=== PATIENT | male | born 2000 | race Caucasian/White ===

== ENCOUNTER 2018-11-17 00:16 | Emergency (ER) | payer BC, SELFPAY ==
[2018-11-17 00:17] VITALS: BP 122/82; PULSE 89; RESP 18; TEMP 37.4; O2SAT 95; BMI 24.3
--- NOTE | 2018-11-17 01:00 | RAD_ITS ---
STUDY: X-RAY CHEST REASON FOR EXAM: Male, 18 years old. Cough. Sore throat. Headache. Congestion. Fever. Diarrhea. TECHNIQUE: Frontal and lateral views of the chest. COMPARISON: None. FINDINGS: The lungs are clear and expanded. There is no demonstrated pleural abnormality. Normal size heart. Normal mediastinum and twyla. Normal visualized pulmonary arteries. Normal visualized aortic arch and descending thoracic aorta. Normal visualized thoracic spine. Normal visualized ribs, clavicles, and shoulders. There is no demonstrated abnormality of the visualized soft tissue structures of the upper abdomen. RAD/Chest PA and Lateral IMPRESSION: Normal x-ray examination of the chest. Electronically Signed: Savage Garay MD at 2:15 EST , Service support ,
[2018-11-17] MEDS: Ketorolac 30 MG/ML Syringe IV (01:18)
[2018-11-17] MEDS: Ondansetron 4 MG/2 ML Vial IV (01:18)
[2018-11-17] MEDS: 0.9% Normal Saline 1,000 ML 999 ML IV (01:18)
--- NOTE | 2018-11-17 02:47 | ED.RN ---
lab called with positive lab results. Patient positive flu A. Dr. Tapia made aware no new orders at this time
--- NOTE | 2018-11-17 03:04 | ED.DEP ---
ED Disposition - Plan for ED Patient: Instructions: ED Flu Referrals: Care Physician,No Primary [Primary Care Provider] -
[2018-11-17 03:14] VITALS: BP 126/64; PULSE 60; RESP 15; O2SAT 98
--- NOTE | 2018-11-17 03:28 | ED.RN ---
Update report given to [facility].
--- NOTE | 2018-11-17 06:57 | ED.DCSUM_ITS ---
- ER Visit Summary Date of Service: 11/17/18 Chief Complaint: Fever History of Present Illness: The patient is a 18 M who presents with a fever. He has been ill for about a day. He complains of congestion rhinorrhea sore throat shortness of breath cough nausea diarrhea muscle aches and joint aches. Physical Examination: 1.3. Vitals otherwise unremarkable Moist mucous membranes Heart regular rate and rhythm Lungs are clear Abdomen soft Alert Test Results: Rapid influenza is positive for influenza A. Two-view chest x-ray normal. Emergency Department Course and Treatment: She is symptomatically treated here with IV fluids and Toradol. He has had some improvement on reevaluation. He was advised on supportive care and specific signs and symptoms to monitor for he was discharged. Treatment Plan: [] Disposition: Discharge Impression: Influenza A This note was generated with [employer] dictation software. It may contain incorrect words, spelling, and punctuation that were not noted in review of the chart prior to signing ED Disposition - Plan for ED Patient: Disposition: Home or Assisted Living Instructions: ED Flu Referrals: Care Physician,No Primary [Primary Care Provider] -
== END 2018-11-17 03:15 | disposition home or self-care (01) ==
PROVIDERS: Emergency Provider Emergency Medicine
DX: J11.1 Influenza due to unidentified influenza virus with other respiratory manifestations (principal)
CPT/HCPCS: 71046; 87804; 96361; 96374; 96375; 99284; J7030; A4216; J2405

== ENCOUNTER 2019-10-25 16:33 | Emergency (ER) | payer BC, SELFPAY ==
[2019-10-25 16:34] VITALS: BP 140/73; PULSE 65; RESP 16; TEMP 36.2; O2SAT 99; BMI 24.3
--- NOTE | 2019-10-25 17:00 | ED.VISSUMM ---
- ER Visit Summary Date of Service: 10/25/19 Chief Complaint: [Head injury/concussion] History of Present Illness: The patient is a 19 M [presents to the emergency department with a head injury that occurred 5 days ago. Patient states that he was wrestling with a friend and was kind of dropped on his head from about 2 feet off the ground. Patient sustained a rug burn to the forehead. Since that time has had a hard time concentrating and complains of a mild low-grade headache that he rates about a 4 out of 10. Patient also has had some intermittent dizziness with standing and quick head movements. Patient states that he has had concussions before is not real worried about it but has some sort of a certification test coming up and was trying to have it moved and would need a note from a doctor. Patient drove himself to the emergency department. Patient has otherwise no medical history. He denies any neck pain. He has had no vomiting. Patient denies any visual changes.] Physical Examination: [HEENT-PERRLA, EOMI. Cranial nerves II through XII grossly intact. TMs clear. Mucous membranes moist. No adenopathy. Patient has superficial skin abrasion to the forehead. No bony step-offs noted. No hemotympanum. No C-spine tenderness on palpation. Normal active range of motion is painless. Cardiovascular-regular rate and rhythm without murmur or ectopy Lungs-clear to auscultation, chest wall stable without crepitus or subcu emphysema Abdomen-normoactive bowel sounds, soft, nontender, no rebound or rigidity, no peritoneal signs. Extremities-intact ?4, normal range of motion, normal pulses, atraumatic] Test Results: [None indicated] Emergency Department Course and Treatment: [Patient received Adacel tetanus booster.] Treatment Plan: [Patient will be referred to primary care physician [employer] for no doc for follow-up in 5 to 7 days. Patient advised to get lots of sleep and drink plenty of water. Patient to avoid contact sports until symptom-free for at least a week.] Disposition: [Discharged home in stable condition] Impression: [Concussion/closed head injury] This note was generated with [employer] software. It may contain incorrect words, spelling, and punctuation that were not noted in review of the chart prior to signing ED Disposition - Plan for ED Patient: Referrals: Care Physician,No Primary [Primary Care Provider] -
--- NOTE | 2019-10-25 17:05 | ED.DEP ---
ED Disposition - Plan for ED Patient: Instructions: CONCUSSION, No Wake Up Referrals: Care Physician,No Primary [Primary Care Provider] - Ashlee Retana MD [STAFF PHYSICIAN] - 3-5 Days
== END 2019-10-25 17:12 | disposition home or self-care (01) ==
LOC: ED 17:05
PROVIDERS: Emergency Provider Emergency Medicine
DX: S06.0X0A Concussion without loss of consciousness, initial encounter (principal); S00.81XA Abrasion of other part of head, initial encounter; W04.XXXA Fall while being carried or supported by other persons, initial encounter; Y93.83 Activity, rough housing and horseplay; Y92.9 Unspecified place or not applicable
CPT/HCPCS: 99282